=== PATIENT | male | born 1985 | race Caucasian/White ===

== ENCOUNTER 2017-04-01 03:58 | Emergency (ER) | payer OTHER ==
[2017-04-01] MEDS ORDERED: ADDERALL 2020 MG/TAB PO (04:06)
== END 2017-04-01 05:39 ==
LOC: EDMED 03:58
PROC: 0HQ1XZZ Repair Face Skin, External Approach (ICD-10-PCS; principal; 2017-04-01)
DX: S01.81XA Laceration without foreign body of other part of head, initial encounter (principal); Z23 Encounter for immunization; F17.210 Nicotine dependence, cigarettes, uncomplicated; W22.8XXA Striking against or struck by other objects, initial encounter